=== PATIENT | male | born 1950 | race Caucasian/White ===

== ENCOUNTER 2021-06-18 15:30 | Emergency (ER) | payer BC ==
[~2021-06-18] VITALS: Ht 170.2 cm; Wt 85.4 kg
[2021-06-18 17:34] VITALS: BP 131/90
--- NOTE | 2021-06-18 18:40 | PHYS DOC ---
Past Medical History Past Surgical History: Other Additional Past Surgical Histo: right shoulder replacement, left knee scope Smoking Status: Never Smoker Alcohol Use: None General Adult EDM: Chief Complaint: LACERATION/AVULSION HPI: HPI: Patient is a 70 year old male who presents with laceration to his right thumb. Patient reports he was using a new nut grinder on the table, when he hit his left thumb on the blade. Patient is left-hand dominant. He is unsure of the date of his last tetanus vaccination. Patient denies any other injury, trauma or pain. Review of Systems: Review of Systems: ROS negative or noncontributory except as mentioned in HPI. Heart Score: C/O Chest Pain: No Allergies: Allergies: Allergies Coded Allergies Type Severity Reaction Last Updated Verified No Known Drug Allergies 06/18/21 No Physical Exam: PE: Constitutional: Well developed, well nourished, no acute distress, non-toxic appearance. HENT: Normocephalic, atraumatic, bilateral external ears normal, nose normal. Eyes: EOMI, conjunctiva normal, no discharge. Neck: Normal range of motion, no stridor. Skin: Approximately 3 cm laceration to the dorsal aspect of the right thumb between the PIP and DIP joints, extending parallel with the line of the thumb. Skin otherwise warm, dry, no erythema, no rash. Extremities: No tenderness, no cyanosis, no clubbing, active ROM intact, no edema. Neurologic: Alert and oriented x4, normal motor function, normal sensory function, no focal deficits noted. Current Patient Data: Vital Signs: Vital Signs Date Time Temp Pulse Resp B/P (MAP) Pulse Ox O2 Delivery O2 Flow Rate FiO2 06/18/21 17:34 97.8 80 20 131/90 (104) 95 Room Air 97.8 Course & Med Decision Making: Course & Med Decision Making Pertinent Labs and Imaging studies reviewed. (See chart for details) Patient is a 70-year-old male who presents with approximately 3 cm laceration to his right thumb. Date of last tetanus vaccination is unknown, so was updated today. Laceration does not overlie a joint and is superficial. Laceration closed with Dermabond. Laceration care was discussed. Return precautions were provided. Patient understands and is agreeable to discharge plan. Gordon Disclaimer: Gordon Disclaimer: This electronic medical record was generated, in whole or in part, using a voice recognition dictation system. Laceration Repair Lac Repair Indication: Right thumb laceration Procedure: The patient was placed in the appropriate position and the area was thoroughly irrigated with sterile saline. The laceration was then cleansed with chlorhexidine swab. The laceration was closed with Dermabond. The wound area was then dressed with Steri-Strip. Total repaired wound length: 3 cm. Other Items: The patient tolerated the procedure very well. Complications: Immediately after closure, patient stated the Steri-Strip dressing began to come off. In removing the remainder of the Steri-Strip, the freshly applied Dermabond came with it. Dermabond was reapplied. Departure Departure Impression: Primary Impression: Laceration of right thumb without foreign body without damage to nail Qualified Codes: S61.011A - Laceration without foreign body of right thumb without damage to nail, initial encounter Disposition: HOME / SELF CARE / HOMELESS Condition: IMPROVED Patient Instructions: Laceration Care, Adult, [id number] Additional Instructions: EMERGENCY DEPARTMENT GENERAL DISCHARGE INSTRUCTIONS Thank you for coming to [facility] Emergency Department (ED) today and trusting us with you care. We trust that you had a positive experience in our Emergency Department. If you wish to speak to the department management, you may call the director at . YOUR FOLLOW UP INSTRUCTIONS ARE FOLLOWS: 1. Follow up with your primary care doctor. If you do not have a primary doctor, please ask for a resource list of physicians or clinics that may be able to assist you with follow up care. 2. The emergency provider has interpreted your imaging studies, if any were ordered. The radiology engineering test specialist also reviewed them. If there is a change in the findings, you will be notified in 48 hours when at all possible. 3. If a lab test or culture has been done, your results will be reviewed and you will be notified if you need a change in treatment. 4. Follow instructions verbalized to you and refer to the printouts if needed. ADDITIONAL INSTRUCTIONS AND INFORMATION: 1. Your care today has been supervised by a physician who is specially trained in emergency care. Many problems require more than one evaluation for a complete diagnosis and treatment. We recommend that you schedule your follow up appointment as recommended to ensure complete treatment of you illness or injury. If you are unable to obtain follow up care and continue to have a problem, or if your condition worsens, we recommend that you return to the ED. 2. We are not able to safely determine your condition over the phone nor are we able to give sound medical advice over the phone. For these safety reasons, if you call for medical advice we will ask you to come to the ED for further evaluation. 3. If you have any questions regarding these discharge instructions please call the ED at . SAFETY INFORMATION: In the interest of safety, wellness, and injury prevention; we encourage you to wear your seat belt, if you smoke; quite smoking, and we encourage family to use a protective helmet for bicycling and other sporting events that present an increased risk for head injury. IF YOUR SYMPTOMS WORSEN OR NEW SYMPTOMS DEVELOP, OR YOU HAVE CONCERNS ABOUT YOUR CONDITION; OR IF YOUR CONDITION WORSENS WHILE YOU ARE WAITING FOR YOUR FOLLOW UP APPOINTMENT; EITHER CONTACT YOUR PRIMARY CARE DOCTOR, THE PHYSICIAN WHOSE NAME AND NUMBER YOU WERE GIVEN, OR RETURN TO THE ED IMMEDIATELY. GEORGE BOYER Jun 18, 2021 18:40
[2021-06-18] MEDS ORDERED: BACITRACIN TOPICAL OINT PACKET. TP ONE (19:00)
[2021-06-18] MEDS ORDERED: DIPHTH,PERTUSS(ACELL),TET TOX 0.5 ML DISP.SYRIN. VAX IM ONE (19:00)
== END 2021-06-18 18:52 | disposition home or self-care (01) ==
LOC: ER 15:30
DX: S61.011A Laceration without foreign body of right thumb without damage to nail, initial encounter (principal); W22.8XXA Striking against or struck by other objects, initial encounter; Y93.89 Activity, other specified; Y92.89 Other specified places as the place of occurrence of the external cause; Y99.8 Other external cause status
CPT/HCPCS: 12002; 90471; 90715; 99283-25